=== PATIENT | male | born 1965 | race Hispanic/Latino ===

== ENCOUNTER 2019-08-20 08:14 | Emergency (ER) | payer OTHER, SELFPAY ==
--- NOTE | 2019-08-20 09:02 | RAD ---
Portable frontal chest radiograph: 08/20/2019 COMPARISON: None HISTORY: Injury, trauma, pain FINDINGS: Lungs are clear. Heart and mediastinal contours appear within normal limits. IMPRESSION: No acute findings.
--- NOTE | 2019-08-20 09:04 | CT ---
Head CT without contrast 08/20/2019: COMPARISON: 11/05/2006 HISTORY: Trauma, pain TECHNIQUE: Axial CT imaging at 5 mm intervals from vertex through skull base without contrast FINDINGS: Imaged paranasal sinuses/mastoid air cells well-aerated. No displaced calvarial fracture. N o intracranial hemorrhage, midline shift, mass effect, or ventricular enlargement. IMPRESSION: No intracranial hemorrhage or displaced calvarial fracture.
--- NOTE | 2019-08-20 09:09 | CT ---
Cervical spine CT without contrast: 08/20/2019 COMPARISON: None HISTORY: Injury, trauma, pain TECHNIQUE: Axial CT imaging at 2.5 mm intervals through the cervical spine without contrast. Coronal and sagittal reformatted imaging obtained. FINDINGS: Imaged lung apices unremarkable. C1 ring, dens, occipital condyles, craniocervical junction, and cervicothoracic junction intact. Mild degenerative change present at the atlantoaxial interspace. No anterolisthesis or retrolisthesis . No prevertebral soft tissue swelling. Mild disc space narrowing with anterior and posterior osteophyte formation at C4-5, C5-6, and C6-7. Mild uncovertebral osteophyte encroachment on the left C5-6 neural foramen. Mild uncovertebral osteophyte encroachment on the right C4-5 and C5-6 neural foramina. No acute fracture or evidence of dislocation. IMPRESSION: Cervical spine degenerative change. No acute fracture or dislocation.
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
== END 2019-08-20 10:14 | disposition home or self-care (01) ==
LOC: ERS 08:14
DX: S16.1XXA Strain of muscle, fascia and tendon at neck level, initial encounter (principal); M54.5 Low back pain; M54.6 Pain in thoracic spine; V89.2XXA Person injured in unspecified motor-vehicle accident, traffic, initial encounter
CPT/HCPCS: 70450; 71045; 72100; 72125